=== PATIENT | female | born 1955 | race Caucasian/White ===

== ENCOUNTER 2017-05-05 10:29 | Emergency (ER) | payer BC ==
[2017-05-05 10:42] VITALS: BP 133/71
[2017-05-05] MEDS ORDERED: Sodium Chloride 0.9% 10 ML Syringe FLUSH PRN ×2 (10:43→12:11)
[2017-05-05] MEDS ORDERED: Iopamidol 755 Mg/ML 100 ML Bottle IVPUSH ONE (12:11)
[2017-05-05] MEDS ORDERED: Sodium Chloride 0.9% 100 ML IV SCH (12:15)
--- NOTE | 2017-05-05 12:48 | CR ---
Chest: Frontal view of the chest was obtained utilizing portable technique. Comparison: No prior chest x-ray. Heart size and mediastinum are within normal limits for portable technique. Lungs are clear of acute infiltrates. Bony structures are grossly intact. Previous neck surgery is noted. Impression: 1. Nothing acute seen on portable chest x-ray. Diagnostic code #2
--- NOTE | 2017-05-05 13:16 | CT ---
CT chest Technique: Multiple axial sections through the chest were obtained. Reconstructed coronal and sagittal images were obtained. Intravenous contrast was utilized. Study has been performed as a pulmonary angiogram protocol. Comparison: No previous CT chest, previous chest x-ray performed earlier on the same day (10:45 AM). Findings: Pulmonary arteries are well opacified. No filling defects are identified to indicate pulmonary embolism. Mediastinum and hilar regions show no adenopathy or mass. No pericardial thickening is seen. Nonobstructing calculi are present within both kidneys. Lungs are clear without acute parenchymal densities. No pleural effusions or pneumothorax is seen. Bone window settings were reviewed which shows no acute osseous abnormality. Impression: 1. No findings of pulmonary embolism. 2. Nonobstructing calculi are noted within both kidneys. 3. Nothing acute is appreciated on CT study of the chest. Diagnostic code #2
--- NOTE | 2017-05-05 13:49 | EDM.PDOC ---
ED HPI GENERAL MEDICAL PROBLEM - General Chief Complaint: Chest Pain Stated Complaint: CHEST PAIN AND SOB x 2 WEEKS Time Seen by Provider: 05/05/17 10:43 Source of Information: Reports: Patient, RN Notes Reviewed - History of Present Illness INITIAL COMMENTS - FREE TEXT/NARRATIVE: 61-year-old female comes in with episodes of palpitations, chest discomfort dyspnea. Been occurring off and on for about the past 2 weeks. Chin of palpitations and discomfort has been variable. She is a healthy lady with no known history for heart or lung problems. She's not been coughing any more than usual. No fever or chills. No nausea vomiting or diaphoresis. She is asymptomatic at this time. 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: Endocrine/Metabolic History: Reports: Hypothyroidism Oncologic (Cancer) History: Reports: Non-Hodgkin's Lymphoma, Other (See Below) Other Oncologic History: blood CA in 2009, doctors diagnosed it as non-hodgkins lymphoma - Past Surgical History Endocrine Surgical History: Reports: Other (See Below) Other Endocrine Surgeries/Procedures: thyroid removed Social & Family History - Tobacco Use Smoking Status *Q: Never Smoker - Caffeine Use Caffeine Use: Reports: Coffee, Soda - Recreational Drug Use Recreational Drug Use: No ED ROS GENERAL - Review of Systems Review Of Systems: See Below Constitutional: Denies: Fever, Chills, Diaphoresis HEENT: Denies: Sinus Problem, Throat Pain Respiratory: Reports: Shortness of Breath, Pleuritic Chest Pain (intermittent, gone). Denies: Cough (intermittent gone), Sputum Cardiovascular: Reports: Chest Pain, Dyspnea on Exertion (intermittent gone), Lightheadedness GI/Abdominal: Denies: Abdominal Pain, Nausea, Vomiting Musculoskeletal: Denies: Neck Pain, Shoulder Pain, Arm Pain, Back Pain Skin: Reports: No Symptoms Neurological: Reports: Dizziness (gone). Denies: Trouble Speaking, Difficulty Walking, Weakness ED EXAM, GENERAL - Physical Exam Exam: See Below General Appearance: Alert, No Apparent Distress Eye Exam: Bilateral Eye: PERRL Throat/Mouth: Normal Inspection, Normal Oropharynx Head: Atraumatic. No: Facial Swelling Neck: Supple, Full Range of Motion Respiratory/Chest: No Respiratory Distress, Lungs Clear, Normal Breath Sounds, Chest Non-Tender Cardiovascular: Regular Rate, Rhythm GI/Abdominal: Soft, Non-Tender Back Exam: No: CVA Tenderness (L), CVA Tenderness (R) Extremities: Normal Inspection, Normal Range of Motion Neurological: Alert, Oriented, No Motor/Sensory Deficits Skin Exam: Warm, Dry, Normal Color Course - Vital Signs Last Recorded V/S: Last Vital Signs Temp 97.7 F 05/05/17 10:38 Pulse 60 05/05/17 13:00 Resp 20 05/05/17 13:00 BP 133/71 05/05/17 10:38 Pulse Ox 99 05/05/17 13:00 - Orders/Labs/Meds Orders: Active Orders 24 hr Category Date Time Status EKG 12 Lead [EKG Documentation Completion] [RC] STAT Care 05/05/17 10:43 Active Event Monitor [RC] .PRN Care 05/05/17 13:58 Active Peripheral IV Care [RC] . DIRECTED Care 05/05/17 10:44 Active Sodium Chloride 0.9% [Normal Saline] 100 ml Med 05/05/17 12:15 Active IV ASDIRECTED Sodium Chloride 0.9% [Saline Flush] Med 05/05/17 10:43 Active 10 ml FLUSH ASDIRECTED PRN Sodium Chloride 0.9% [Saline Flush] Med 05/05/17 12:11 Active 10 ml FLUSH ONETIME PRN Peripheral IV Insertion Adult [OM.PC] Stat Oth 05/05/17 10:44 Ordered Medication Orders Sodium Chloride (Normal Saline) 100 mls @ 65 mls/hr IV ASDIRECTED MAXI Last Admin: 05/05/17 12:29 Dose: 65 mls/hr Sodium Chloride (Saline Flush) 10 ml FLUSH ASDIRECTED PRN PRN Reason: Keep Vein Open Last Admin: 05/05/17 11:05 Dose: 10 ml Sodium Chloride (Saline Flush) 10 ml FLUSH ONETIME PRN PRN Reason: IV FLUSH Last Admin: 05/05/17 12:29 Dose: 10 ml Labs: Laboratory Tests 05/05/17 05/05/17 05/05/17 Range/Units 10:45 10:45 10:45 WBC 3.73 L (3.98-10.04) K/mm3 RBC 4.23 (3.98-5.22) M/mm3 Hgb 13.0 (11.2-15.7) gm/L Hct 39.1 (34.1-44.9) % MCV 92.4 (79.4-94.8) fl MCH 30.7 (25.6-32.2) pg MCHC 33.2 (32.2-35.5) g/dl RDW Std Deviation 40.9 (36.4-46.3) fL Plt Count 236 (182-369) K/mm3 MPV 9.0 L (9.4-12.3) fl Neut % (Auto) 57.7 (34.0-71.1) % Lymph % (Auto) 32.4 (19.3-51.7) % [place] % (Auto) 8.8 (4.7-12.5) % Eos % (Auto) 0.8 (0.7-5.8) Baso % (Auto) 0.3 (0.1-1.2) % Neut # (Auto) 2.15 (1.56-6.13) K/mm3 Lymph # (Auto) 1.21 (1.18-3.74) K/mm3 [place] # (Auto) 0.33 (0.24-0.36) K/mm3 Eos # (Auto) 0.03 L (0.04-0.36) K/mm3 Baso # (Auto) 0.01 (0.01-0.08) K/mm3 ESR (0-20) mm/hr D-Dimer, Quantitative 1.02 H (0.19-0.59) mg/L Sodium 141 (136-145) mEq/L Potassium 4.1 (3.5-5.1) mEq/L Chloride 106 (98-107) mEq/L Carbon Dioxide 28 (21-32) mEq/L Anion Gap 11.1 (5-15) BUN 17 (7-18) mg/dL Creatinine 1.0 (0.55-1.02) mg/dL Est Cr Clr Drug Dosing 51.02 mL/min Estimated GFR (MDRD) 56 (>60) mL/min BUN/Creatinine Ratio 17.0 (14-18) Glucose 99 (80-115) mg/dL Calcium 9.3 (8.5-10.1) mg/dL Total Bilirubin 0.7 (0.2-1.0) mg/dL AST 21 (15-37) U/L ALT 24 (14-59) U/L Alkaline Phosphatase 107 (46-116) U/L Troponin I < 0.017 (0.00-0.056) ng/mL Total Protein 7.6 (6.4-8.2) g/dl Albumin 3.3 L (3.4-5.0) g/dl Globulin 4.3 gm/dL Albumin/Globulin Ratio 0.8 L (1-2) TSH 3rd Generation 0.499 (0.358-3.74) uIU/mL 05/05/17 Range/Units 10:45 WBC (3.98-10.04) K/mm3 RBC (3.98-5.22) M/mm3 Hgb (11.2-15.7) gm/L Hct (34.1-44.9) % MCV (79.4-94.8) fl MCH (25.6-32.2) pg MCHC (32.2-35.5) g/dl RDW Std Deviation (36.4-46.3) fL Plt Count (182-369) K/mm3 MPV (9.4-12.3) fl Neut % (Auto) (34.0-71.1) % Lymph % (Auto) (19.3-51.7) % [place] % (Auto) (4.7-12.5) % Eos % (Auto) (0.7-5.8) Baso % (Auto) (0.1-1.2) % Neut # (Auto) (1.56-6.13) K/mm3 Lymph # (Auto) (1.18-3.74) K/mm3 [place] # (Auto) (0.24-0.36) K/mm3 Eos # (Auto) (0.04-0.36) K/mm3 Baso # (Auto) (0.01-0.08) K/mm3 ESR 45 H (0-20) mm/hr D-Dimer, Quantitative (0.19-0.59) mg/L Sodium (136-145) mEq/L Potassium (3.5-5.1) mEq/L Chloride (98-107) mEq/L Carbon Dioxide (21-32) mEq/L Anion Gap (5-15) BUN (7-18) mg/dL Creatinine (0.55-1.02) mg/dL Est Cr Clr Drug Dosing mL/min Estimated GFR (MDRD) (>60) mL/min BUN/Creatinine Ratio (14-18) Glucose (80-115) mg/dL Calcium (8.5-10.1) mg/dL Total Bilirubin (0.2-1.0) mg/dL AST (15-37) U/L ALT (14-59) U/L Alkaline Phosphatase (46-116) U/L Troponin I (0.00-0.056) ng/mL Total Protein (6.4-8.2) g/dl Albumin (3.4-5.0) g/dl Globulin gm/dL Albumin/Globulin Ratio (1-2) TSH 3rd Generation (0.358-3.74) uIU/mL Meds: Medications Generic Name Dose Route Start Last Admin Trade Name Freq PRN Reason Stop Dose Admin Sodium Chloride 100 mls @ 65 mls/hr 05/05/17 12:15 05/05/17 12:29 Normal Saline IV 65 mls/hr ASDIRECTED MAXI Administration Sodium Chloride 10 ml 05/05/17 10:43 05/05/17 11:05 Saline Flush FLUSH 10 ml ASDIRECTED PRN Administration Keep Vein Open Sodium Chloride 10 ml 05/05/17 12:11 05/05/17 12:29 Saline Flush FLUSH 10 ml ONETIME PRN Administration IV FLUSH Discontinued Medications Generic Name Dose Route Start Last Admin Trade Name Freq PRN Reason Stop Dose Admin Iopamidol 100 ml 05/05/17 12:11 05/05/17 12:29 [id number] (76%) IVPUSH 05/05/17 12:12 100 ml ONETIME ONE Administration Departure - Departure Time of Disposition: 13:47 Disposition: Home, Self-Care 01 Condition: Fair Clinical Impression: Atypical chest pain, Palpitations Instructions: Palpitations, [id number], Chest Pain Observation Referrals: Oz Castillo MD [Primary Care Provider] - Forms: ED Department Discharge Additional Instructions: your labs, chest x-ray, EKG all checked out well today as well as CT pulmonary angiogram of the chest to rule out a blood clot problem. Event recorder for 1 week, continue to drink plenty of water to maintain hydration, eat regular meals and snacks, plan to follow-up with Dr. Vinson in about one week, call for appointment today, return to ED if symptoms worsening in any way. - My Orders Last 24 Hours: My Active Orders 05/05/17 10:43 EKG 12 Lead [EKG Documentation Completion] [RC] STAT Sodium Chloride 0.9% [Saline Flush] 10 ml FLUSH ASDIRECTED PRN 05/05/17 10:44 Peripheral IV Care [RC] . DIRECTED Peripheral IV Insertion Adult [OM.PC] Stat 05/05/17 12:11 Sodium Chloride 0.9% [Saline Flush] 10 ml FLUSH ONETIME PRN 05/05/17 12:15 Sodium Chloride 0.9% [Normal Saline] 100 ml IV ASDIRECTED 05/05/17 13:58 Event Monitor [RC] .PRN - Assessment/Plan Last 24 Hours: My Active Orders 05/05/17 10:43 EKG 12 Lead [EKG Documentation Completion] [RC] STAT Sodium Chloride 0.9% [Saline Flush] 10 ml FLUSH ASDIRECTED PRN 05/05/17 10:44 Peripheral IV Care [RC] . DIRECTED Peripheral IV Insertion Adult [OM.PC] Stat 05/05/17 12:11 Sodium Chloride 0.9% [Saline Flush] 10 ml FLUSH ONETIME PRN 05/05/17 12:15 Sodium Chloride 0.9% [Normal Saline] 100 ml IV ASDIRECTED 05/05/17 13:58 Event Monitor [RC] .PRN
== END 2017-05-05 14:13 | disposition home or self-care (01) ==
LOC: JD.ED 10:29
DX: R07.89 Other chest pain (principal); R00.2 Palpitations; E03.9 Hypothyroidism, unspecified; Z88.2 Allergy status to sulfonamides
CPT/HCPCS: 36415; 71010; 71275; 80053; 84443; 84484; 85025; 85379; 85652; 93005; 93270; 93271; 99285; J7030; J7050; Q9967; 99284